=== PATIENT | female | born 1970 | race Caucasian/White ===

== ENCOUNTER → 2018-09-22 | Outpatient (CLI) | payer OTHER ==
--- NOTE | 2018-09-22 17:34 | Diagnostic Imaging Report ---
TECHNIQUE: Magnetic resonance imaging of the RIGHT SHOULDER was performed WITHOUT injected contrast. HISTORY: Injury, strain, pain, fell COMPARISON: None available. FINDINGS: MUSCLES AND TENDONS: Rotator Cuff: Tendons: Supraspinatus and Infraspinatus: Focal high-grade bursal sided partial-thickness tear of the anterior supraspinatus tendon (series 4 image 10). Thickening and increased intrasubstance signal of the infraspinatus tendon. Teres Minor: Intact Subscapularis: Intact Muscles: No focal muscle atrophy. Biceps Tendon: The long head of the biceps tendon is intact and within the intertubercular groove. GLENOHUMERAL JOINT: Glenoid Labrum: Complex tearing and attenuation of the posterosuperior and posterior labrum. Articular Cartilage: Intermediate grade erosion of the posterior glenoid cartilage. Joint Fluid: No effusion. ACROMIOCLAVICULAR JOINT: Severe hypertrophic degenerative changes of the acromioclavicular joint. Small effusion and synovitis. BONE: The acromion is unremarkable. The bone marrow signal is heterogeneous, compatible with red marrow conversion, no specific evidence of a focal bone marrow replacing abnormality. No acute fracture. SOFT TISSUES: Small volume of fluid within the subacromial/subdeltoid bursa. IMPRESSION: 1. Focal high-grade bursal sided partial-thickness tear of the anterior supraspinatus tendon. 2. Infraspinatus tendinosis. 3. Degenerative changes of the acromioclavicular and glenohumeral joints, including degenerative tearing of the labrum. 4. Mild subacromial/subdeltoid bursitis. Signed by: Dr. Deric Hobbs D.O., M.M.M. on 09/22/2018 5:31 PM
== END ==
LOC: MRI 15:21
PROVIDERS: ATTEND Family Medicine
DX: S49.91XA Unspecified injury of right shoulder and upper arm, initial encounter (principal)